=== PATIENT | male | born 1980 | race Caucasian/White ===

== ENCOUNTER 2017-04-11 08:11 | Emergency (ER) | payer OTHER ==
--- NOTE | 2017-04-11 08:38 | EDM.PDOC ---
ED HPI GENERAL MEDICAL PROBLEM - General Chief Complaint: General Stated Complaint: HEAT EXHAUSTION Time Seen by Provider: 04/11/17 08:21 - History of Present Illness INITIAL COMMENTS - FREE TEXT/NARRATIVE: HISTORY AND PHYSICAL: History of present illness: [The patient is a 37-year-old male with a history long-standing of seasonal allergies and vertigo who presents with complaints of a sore throat and swollen glands for the last 2-3 days and feeling more vertiginous than usual. He also complains of some sinus congestion and minimal drainage but no cough chest pain or shortness of breath and no nausea or vomiting. The patient states he has had episodes of vertigo his whole life and he always has some low-grade vertiginous symptoms which he treats with antihistamines [id number] and Antivert as needed. He has several episodes per year where it flares up and he says this episode that he is experiencing now is not severe. He is concerned also about the fact that he was out doing landscaping 3 days ago and is worried he might be dehydrated. He said he had a subjective fever after doing that but has not had a fever since then. With a sore throat the patient states he is able to talk eat and drink but there is some discomfort with that. Patient is able to sleep and lay down but he prefers to sleep on several pillows as a norm. He has no abdominal complaints no extremity complaints but does feel some generalized weakness since doing the landscaping 3 days ago. Review of systems: As per history of present illness and below otherwise all systems reviewed and negative. Past medical history: As per history of present illness and as reviewed below otherwise noncontributory. Surgical history: As per history of present illness and as reviewed below otherwise noncontributory. Social history: No reported history of drug or alcohol abuse. Family history: As per history of present illness and as reviewed below otherwise noncontributory. Physical exam: Gen.: Well-developed well-nourished man is nontoxic and moves easily in the ED without distress. Vital signs been noted by me. HEENT: Atraumatic, normocephalic, pupils reactive, negative for conjunctival pallor or scleral icterus, mucous membranes moist, throat clear of exudates but there is a steer oropharyngeal erythema and some edema, uvula is midline, there is significant anterior cervical adenopathy without nuchal rigidity and no posterior adenopathy, the anterior adenopathy is tender,, neck supple, nontender , trachea midline. There is no discrete sinus tenderness but the turbinates are boggy bilaterally Lungs: Clear to auscultation, breath sounds equal bilaterally, chest nontender. Heart: S1S2, regular rate and rhythm no overt murmurs Abdomen: Soft, nondistended, nontender. NABSs. Pelvis: Stable nontender. Genitourinary: Deferred. Rectal: Deferred. Extremities: Atraumatic, negative for cords or calf pain. Neurovascular unremarkable. Neuro: Awake, alert, oriented. Cranial nerves II through XII unremarkable. Cerebellum unremarkable. Motor and sensory unremarkable throughout. Exam nonfocal. Diagnostics: Rapid strep UA Therapeutics: After the UA results were discussed with the patient he has chosen to get a liter of IV fluid. The patient expressed concerned about being dehydrated and although he clinically and bilateral signs does not appear to be dehydrated we will go ahead and perform a urine test and act on those results. I will plan on treating his lymphadenopathy as well as his complaints of pharyngitis Impression: Pharyngitis with cervical lymphadenopathy, history of vertigo with mild exacerbation, mild dehydration Definitive disposition and diagnosis as appropriate pending reevaluation and review of above. throat Pain Score (Numeric/FACES): 2 - Related Data Allergies Allergy/AdvReac Type Severity Reaction Status Date / Time gluten Allergy Abdominal Verified 04/11/17 08:24 Pain lactose Allergy Abdominal Verified 04/11/17 08:24 Pain Home Meds: Home Meds . [No Known Home Meds] 02/08/16 [History] Past Medical History HEENT History: Reports: None Cardiovascular History: Reports: None Respiratory History: Reports: None Gastrointestinal History: Reports: None Genitourinary History: Reports: Renal Calculus Musculoskeletal History: Reports: None Neurological History: Reports: Other (See Below) Other Neuro History: brain tumor, shunt. Psychiatric History: Reports: None Endocrine/Metabolic History: Reports: None Hematologic History: Reports: None Immunologic History: Reports: None Oncologic (Cancer) History: Reports: None Dermatologic History: Reports: None - Infectious Disease History Infectious Disease History: Reports: None - Past Surgical History Head Surgeries/Procedures: Reports: None HEENT Surgical History: Reports: None Cardiovascular Surgical History: Reports: None Respiratory Surgical History: Reports: None GI Surgical History: Reports: None Neurological Surgical History: Reports: Other (See Below) Dermatological Surgical History: Reports: None Social & Family History - Family History Family Medical History: Noncontributory - Tobacco Use Smoking Status *Q: Never Smoker Second Hand Smoke Exposure: No - Recreational Drug Use Recreational Drug Use: No ED ROS GENERAL - Review of Systems Review Of Systems: ROS reveals no pertinent complaints other than HPI. ED EXAM, GENERAL - Physical Exam Exam: See Below (See dictation) Course - Vital Signs Last Recorded V/S: Last Vital Signs Temp 37.1 C 04/11/17 08:21 Pulse 99 04/11/17 08:21 Resp 18 04/11/17 08:21 BP 126/81 04/11/17 08:21 Pulse Ox 98 04/11/17 08:21 - Orders/Labs/Meds Orders: Active Orders 24 hr Category Date Time Status CULTURE STREP A CONFIRMATION [RM] Stat Lab 04/11/17 08:36 Results STREP SCRN A RAPID W CULT CONF [RM] Stat Lab 04/11/17 08:36 Results Sodium Chloride 0.9% [Normal Saline] 1,000 ml Med 04/11/17 09:25 Ordered IV STAT Sodium Chloride 0.9% [Saline Flush] Med 04/11/17 09:25 Ordered 10 ml FLUSH ASDIRECTED PRN Sodium Chloride 0.9% [Saline Flush] Med 04/11/17 09:25 Ordered 2.5 ml FLUSH ASDIRECTED PRN Saline Lock Insert [OM.PC] Stat Oth 04/11/17 09:25 Ordered Medication Orders Sodium Chloride (Normal Saline) 1,000 mls @ 999 mls/hr IV STAT ONE Stop: 04/11/17 10:25 Sodium Chloride (Saline Flush) 10 ml FLUSH ASDIRECTED PRN PRN Reason: Keep Vein Open Sodium Chloride (Saline Flush) 2.5 ml FLUSH ASDIRECTED PRN PRN Reason: Keep Vein Open Labs: Laboratory Tests 04/11/17 Range/Units 08:36 Urine Color YELLOW Urine Appearance HAZY Urine pH 6.0 (5.0-8.0) Ur Specific [place] >= 1.030 (1.001-1.035) Urine Protein TRACE (NEGATIVE) mg/dL Urine Glucose (UA) NEGATIVE (NEGATIVE) mg/dL Urine Ketones NEGATIVE (NEGATIVE) mg/dL Urine Occult Blood SMALL H (NEGATIVE) Urine Nitrite NEGATIVE (NEGATIVE) Urine Bilirubin SMALL H (NEGATIVE) Urine Ictotest NEGATIVE Urine Urobilinogen 0.2 (<2.0) EU/dL Ur Leukocyte Esterase NEGATIVE (NEGATIVE) Urine RBC 1-3 (0-2/HPF) Urine WBC 0-2 (0-5/HPF) Ur Epithelial Cells RARE (NONE-FEW) Urine Bacteria FEW (NEGATIVE) Urine Mucus MODERATE (NONE-MOD) Meds: Medications Generic Name Dose Route Start Last Admin Trade Name Freq PRN Reason Stop Dose Admin Sodium Chloride 1,000 mls @ 999 mls/hr 04/11/17 09:25 Normal Saline IV 04/11/17 10:25 STAT ONE Sodium Chloride 10 ml 04/11/17 09:25 Saline Flush FLUSH ASDIRECTED PRN Keep Vein Open Sodium Chloride 2.5 ml 04/11/17 09:25 Saline Flush FLUSH ASDIRECTED PRN Keep Vein Open Departure - Departure Time of Disposition: 09:45 Disposition: Home, Self-Care 01 Condition: Good Clinical Impression: Cervical lymphadenopathy Pharyngitis Qualifiers: Pharyngitis/tonsillitis etiology: unspecified etiology Qualified Code(s): J02.9 - Acute pharyngitis, unspecified - Discharge Information Forms: ED Department Discharge Additional Instructions: The following information is given to patients seen in the emergency department who are being discharged to home. This information is to outline your options for follow-up care. We provide all patients seen in our emergency department with a follow-up referral. The need for follow-up, as well as the timing and circumstances, are variable depending upon the specifics of your emergency department visit. If you don't have a primary care physician on staff, we will provide you with a referral. We always advise you to contact your personal physician following an emergency department visit to inform them of the circumstance of the visit and for follow-up with them and/or the need for any referrals to a consulting specialist. The emergency department will also refer you to a specialist when appropriate. This referral assures that you have the opportunity for followup care with a specialist. All of these measure are taken in an effort to provide you with optimal care, which includes your followup. Under all circumstances we always encourage you to contact your private physician who remains a resource for coordinating your care. When calling for followup care, please make the office aware that this follow-up is from your recent emergency room visit. If for any reason you are refused follow-up, please contact the [facility] emergency department at and ask to speak to the emergency department charge nurse. [facility] Primary care- Internal Medicine and Family [address] [address] Try to push more hydration rest taken Biaxin as directed until they are finished. Please continue with the medications you have for your vertigo as needed and return to ER as needed as discussed. Please call and follow-up provider or one of our clinic physicians in the next few days for further care and reevaluation - My Orders Last 24 Hours: My Active Orders 04/11/17 08:36 CULTURE STREP A CONFIRMATION [RM] Stat STREP SCRN A RAPID W CULT CONF [RM] Stat 04/11/17 09:25 Sodium Chloride 0.9% [Normal Saline] 1,000 ml IV STAT Sodium Chloride 0.9% [Saline Flush] 10 ml FLUSH ASDIRECTED PRN Sodium Chloride 0.9% [Saline Flush] 2.5 ml FLUSH ASDIRECTED PRN Saline Lock Insert [OM.PC] Stat - Assessment/Plan Last 24 Hours: My Active Orders 04/11/17 08:36 CULTURE STREP A CONFIRMATION [RM] Stat STREP SCRN A RAPID W CULT CONF [RM] Stat 04/11/17 09:25 Sodium Chloride 0.9% [Normal Saline] 1,000 ml IV STAT Sodium Chloride 0.9% [Saline Flush] 10 ml FLUSH ASDIRECTED PRN Sodium Chloride 0.9% [Saline Flush] 2.5 ml FLUSH ASDIRECTED PRN Saline Lock Insert [OM.PC] Stat
[2017-04-11] MEDS ORDERED: Sodium Chloride 0.9% 1,000 ML IV ONE (09:25)
[2017-04-11] MEDS ORDERED: Sodium Chloride 0.9% 2.5 ML Syringe FLUSH PRN (09:25)
[2017-04-11] MEDS ORDERED: Sodium Chloride 0.9% 10 ML Syringe FLUSH PRN (09:25)
[2017-04-11 10:33] VITALS: BP 148/101
== END 2017-04-11 10:38 | disposition home or self-care (01) ==
LOC: MW.ED 08:11
DX: J02.9 Acute pharyngitis, unspecified (principal); R59.0 Localized enlarged lymph nodes; E86.0 Dehydration; R42 Dizziness and giddiness; Z87.442 Personal history of urinary calculi; Z91.018 Allergy to other foods
CPT/HCPCS: 81001; 87081; 87880; 96360; 99283; J7040; 99284

== ENCOUNTER 2019-01-15 15:40 | Emergency (ER) | payer OTHER ==
[2019-01-15] MEDS ORDERED: Sodium Chloride 0.9% 10 ML Syringe FLUSH PRN (16:10)
[2019-01-15] MEDS ORDERED: Sodium Chloride 0.9% 2.5 ML Syringe FLUSH PRN (16:10)
[2019-01-15] MEDS ORDERED: Ketorolac 30 MG/ML SDV IVPUSH ONE (16:10)
--- NOTE | 2019-01-15 16:22 | EDM.PDOC ---
ED HPI GENERAL MEDICAL PROBLEM - General Chief Complaint: Genitourinary Problem Stated Complaint: kidney stone Time Seen by Provider: 01/15/19 16:15 Source of Information: Reports: Patient History Limitations: Reports: No Limitations - History of Present Illness INITIAL COMMENTS - FREE TEXT/NARRATIVE: HISTORY AND PHYSICAL: History of present illness: Patient is a 38-year-old male here with complaint of left back pain. He reports history of kidney stones and has been hospitalized 5 times in the past due to kidney stones. He reports the pain started this morning and is worse with movement. He denies any injury to the back but does a lot of physical labor but does not recall any specific injury. He denies hematuria, dysuria, abdominal pain, fevers, chills. He denies significant past medical history other than the kidney stones. Patient's blood pressure is 200/110 on arrival. He reports headache at this time. He denies history of hypertension. Denies chest pain, SOB, abdominal pain , nausea, vomiting. diaphoresis. Will check EKG, labs and give labetalol. Review of systems: As per history of present illness and below otherwise all systems reviewed and negative. Past medical history: As per history of present illness and as reviewed below otherwise noncontributory. Surgical history: As per history of present illness and as reviewed below otherwise noncontributory. Social history: No reported history of drug or alcohol abuse. Family history: As per history of present illness and as reviewed below otherwise noncontributory. Physical exam: General: Patient sitting comfortably in no acute distress and nontoxic appearing HEENT: Atraumatic, normocephalic, pupils reactive, negative for conjunctival pallor or scleral icterus, mucous membranes moist, throat clear, neck supple, nontender, trachea midline. No meningeal signs. Lungs: Clear to auscultation, breath sounds equal bilaterally, chest nontender. Heart: S1S2, regular, negative for clicks, rubs, or overt murmur. Abdomen: Soft, nondistended, nontender. Negative for masses or hepatosplenomegaly. Negative for costovertebral tenderness. No rigidity, rebound , guarding. Pelvis: Stable nontender. Genitourinary: Deferred. Rectal: Deferred. Spine: No vertebral tenderness or step offs to palpation. Pain to palpation of the left SI joint. Extremities: Atraumatic, negative for cords or calf pain. Neurovascular unremarkable. Neuro: Awake, alert, oriented. Cranial nerves II through XII unremarkable. Cerebellum unremarkable. Motor and sensory unremarkable throughout. Exam nonfocal. Notes: Diagnostics: UA, CBC, CMP, EKG Therapeutics: Labetolol 10mg IV Prescriptions: None Impression: Back pain, hypertension Plan: 1. Heat or ice as instructed and alternate Tylenol and Motrin as needed. 2. Follow-up with primary care provider 3. Return to ED as needed as discussed Definitive disposition and diagnosis as appropriate pending reevaluation and review of above. Left Flank Pain Score (Numeric/FACES): 6 - Related Data Allergies Allergy/AdvReac Type Severity Reaction Status Date / Time gluten Allergy Abdominal Verified 01/15/19 16:01 Pain lactose Allergy Abdominal Verified 01/15/19 16:01 Pain Home Meds: Home Meds . [No Known Home Meds] 02/08/16 [History] Past Medical History HEENT History: Reports: None Cardiovascular History: Reports: None Respiratory History: Reports: None Gastrointestinal History: Reports: None Genitourinary History: Reports: Renal Calculus Musculoskeletal History: Reports: None Neurological History: Reports: Other (See Below) Other Neuro History: brain tumor, shunt. Psychiatric History: Reports: None Endocrine/Metabolic History: Reports: None Hematologic History: Reports: None Immunologic History: Reports: None Oncologic (Cancer) History: Reports: None Dermatologic History: Reports: None - Infectious Disease History Infectious Disease History: Reports: Chicken Pox - Past Surgical History Head Surgeries/Procedures: Reports: None HEENT Surgical History: Reports: None Cardiovascular Surgical History: Reports: None Respiratory Surgical History: Reports: None GI Surgical History: Reports: None Neurological Surgical History: Reports: Other (See Below) Dermatological Surgical History: Reports: None Social & Family History - Family History Family Medical History: Noncontributory - Tobacco Use Smoking Status *Q: Never Smoker Second Hand Smoke Exposure: No - Caffeine Use Caffeine Use: Reports: Coffee - Recreational Drug Use Recreational Drug Use: No ED ROS GENERAL - Review of Systems Review Of Systems: ROS reveals no pertinent complaints other than HPI. ED EXAM, RENAL/ - Physical Exam Exam: See Below (see dictation) Course - Vital Signs Last Recorded V/S: Last Vital Signs Temp 98.2 F 01/15/19 18:16 Pulse 82 01/15/19 18:16 Resp 16 01/15/19 18:16 BP 165/111 H 01/15/19 18:16 Pulse Ox 96 01/15/19 18:16 - Orders/Labs/Meds Orders: Active Orders 24 hr Category Date Time Status EKG Documentation Completion [RC] STAT Care 01/15/19 16:57 Active Sodium Chloride 0.9% [Saline Flush] Med 01/15/19 16:10 Active 10 ml FLUSH ASDIRECTED PRN Sodium Chloride 0.9% [Saline Flush] Med 01/15/19 16:10 Active 2.5 ml FLUSH ASDIRECTED PRN Saline Lock Insert [OM.PC] Stat Oth 01/15/19 16:10 Ordered Medication Orders Sodium Chloride (Saline Flush) 10 ml FLUSH ASDIRECTED PRN PRN Reason: Keep Vein Open Sodium Chloride (Saline Flush) 2.5 ml FLUSH ASDIRECTED PRN PRN Reason: Keep Vein Open Labs: Laboratory Tests 01/15/19 01/15/19 01/15/19 Range/Units 16:00 16:50 16:50 WBC 11.02 H (4.0-11.0) K/uL RBC 5.94 H (4.50-5.90) M/uL Hgb 16.1 (13.0-17.0) g/dL Hct 45.9 (38.0-50.0) % MCV 77.3 L (80.0-98.0) fL MCH 27.1 (27.0-32.0) pg MCHC 35.1 (31.0-37.0) g/dL RDW Std Deviation 36.9 (28.0-62.0) fl RDW Coeff of Shannan 13 (11.0-15.0) % Plt Count 210 (150-400) K/uL MPV 10.90 (7.40-12.00) fL Neut % (Auto) 61.8 (48.0-80.0) % Lymph % (Auto) 31.0 (16.0-40.0) % [place] % (Auto) 5.7 (0.0-15.0) % Eos % (Auto) 1.1 (0.0-7.0) % Baso % (Auto) 0.4 (0.0-1.5) % Neut # (Auto) 6.8 H (1.4-5.7) K/uL Lymph # (Auto) 3.4 H (0.6-2.4) K/uL [place] # (Auto) 0.6 (0.0-0.8) K/uL Eos # (Auto) 0.1 (0.0-0.7) K/uL Baso # (Auto) 0.0 (0.0-0.1) K/uL Nucleated RBC % 0.0 /100WBC Nucleated RBCs # 0 K/uL Sodium 142 (136-148) mmol/L Potassium 3.3 L (3.5-5.1) mmol/L Chloride 106 (98-107) mmol/L Carbon Dioxide 24.9 (21.0-32.0) mmol/L BUN 10 (7.0-18.0) mg/dL Creatinine 0.8 (0.8-1.3) mg/dL Est Cr Clr Drug Dosing 111.04 mL/min Estimated GFR (MDRD) > 60.0 ml/min Glucose 91 (74-106) mg/dL Calcium 8.8 (8.5-10.1) mg/dL Total Bilirubin 0.4 (0.2-1.0) mg/dL AST 28 (15-37) IU/L ALT 59 (14-63) IU/L Alkaline Phosphatase 57 (46-116) U/L Troponin I (0.000-0.056) ng/mL Total Protein 8.0 (6.4-8.2) g/dL Albumin 4.3 (3.4-5.0) g/dL Globulin 3.7 (2.6-4.0) g/dL Albumin/Globulin Ratio 1.2 (0.9-1.6) Urine Color YELLOW Urine Appearance CLEAR Urine pH 6.0 (5.0-8.0) Ur Specific [place] 1.015 (1.001-1.035) Urine Protein NEGATIVE (NEGATIVE) mg/dL Urine Glucose (UA) NEGATIVE (NEGATIVE) mg/dL Urine Ketones NEGATIVE (NEGATIVE) mg/dL Urine Occult Blood TRACE-INTACT H (NEGATIVE) Urine Nitrite NEGATIVE (NEGATIVE) Urine Bilirubin NEGATIVE (NEGATIVE) Urine Urobilinogen 0.2 (<2.0) EU/dL Ur Leukocyte Esterase NEGATIVE (NEGATIVE) Urine RBC 0-2 (0-2/HPF) Urine WBC 0-1 (0-5/HPF) Ur Epithelial Cells RARE (NONE-FEW) Amorphous Sediment NOT SEEN (NEGATIVE) Urine Bacteria NOT SEEN (NEGATIVE) Urine Mucus NOT SEEN (NONE-MOD) 01/15/19 Range/Units 16:50 WBC (4.0-11.0) K/uL RBC (4.50-5.90) M/uL Hgb (13.0-17.0) g/dL Hct (38.0-50.0) % MCV (80.0-98.0) fL MCH (27.0-32.0) pg MCHC (31.0-37.0) g/dL RDW Std Deviation (28.0-62.0) fl RDW Coeff of Shannan (11.0-15.0) % Plt Count (150-400) K/uL MPV (7.40-12.00) fL Neut % (Auto) (48.0-80.0) % Lymph % (Auto) (16.0-40.0) % [place] % (Auto) (0.0-15.0) % Eos % (Auto) (0.0-7.0) % Baso % (Auto) (0.0-1.5) % Neut # (Auto) (1.4-5.7) K/uL Lymph # (Auto) (0.6-2.4) K/uL [place] # (Auto) (0.0-0.8) K/uL Eos # (Auto) (0.0-0.7) K/uL Baso # (Auto) (0.0-0.1) K/uL Nucleated RBC % /100WBC Nucleated RBCs # K/uL Sodium (136-148) mmol/L Potassium (3.5-5.1) mmol/L Chloride (98-107) mmol/L Carbon Dioxide (21.0-32.0) mmol/L BUN (7.0-18.0) mg/dL Creatinine (0.8-1.3) mg/dL Est Cr Clr Drug Dosing mL/min Estimated GFR (MDRD) ml/min Glucose (74-106) mg/dL Calcium (8.5-10.1) mg/dL Total Bilirubin (0.2-1.0) mg/dL AST (15-37) IU/L ALT (14-63) IU/L Alkaline Phosphatase (46-116) U/L Troponin I < 0.050 (0.000-0.056) ng/mL Total Protein (6.4-8.2) g/dL Albumin (3.4-5.0) g/dL Globulin (2.6-4.0) g/dL Albumin/Globulin Ratio (0.9-1.6) Urine Color Urine Appearance Urine pH (5.0-8.0) Ur Specific [place] (1.001-1.035) Urine Protein (NEGATIVE) mg/dL Urine Glucose (UA) (NEGATIVE) mg/dL Urine Ketones (NEGATIVE) mg/dL Urine Occult Blood (NEGATIVE) Urine Nitrite (NEGATIVE) Urine Bilirubin (NEGATIVE) Urine Urobilinogen (<2.0) EU/dL Ur Leukocyte Esterase (NEGATIVE) Urine RBC (0-2/HPF) Urine WBC (0-5/HPF) Ur Epithelial Cells (NONE-FEW) Amorphous Sediment (NEGATIVE) Urine Bacteria (NEGATIVE) Urine Mucus (NONE-MOD) Meds: Medications Generic Name Dose Route Start Last Admin Trade Name Freq PRN Reason Stop Dose Admin Sodium Chloride 10 ml 01/15/19 16:10 Saline Flush FLUSH ASDIRECTED PRN Keep Vein Open Sodium Chloride 2.5 ml 01/15/19 16:10 Saline Flush FLUSH ASDIRECTED PRN Keep Vein Open Discontinued Medications Generic Name Dose Route Start Last Admin Trade Name Freq PRN Reason Stop Dose Admin Ketorolac Tromethamine 30 mg 01/15/19 16:10 01/15/19 16:52 Toradol IVPUSH 01/15/19 16:11 Not Given ONETIME ONE Labetalol HCl 20 mg 01/15/19 16:57 01/15/19 17:10 Normodyne IVPUSH 01/15/19 16:58 10 mg NOW ONE Administration Protocol Departure - Departure Time of Disposition: 19:09 Disposition: Home, Self-Care 01 Condition: Good Clinical Impression: Back pain, Hypertension - Discharge Information Referrals: PCP,Unknown [Primary Care Provider] - Forms: ED Department Discharge Additional Instructions: The following information is given to patients seen in the emergency department who are being discharged to home. This information is to outline your options for follow-up care. We provide all patients seen in our emergency department with a follow-up referral. The need for follow-up, as well as the timing and circumstances, are variable depending upon the specifics of your emergency department visit. If you don't have a primary care physician on staff, we will provide you with a referral. We always advise you to contact your personal physician following an emergency department visit to inform them of the circumstance of the visit and for follow-up with them and/or the need for any referrals to a consulting specialist. The emergency department will also refer you to a specialist when appropriate. This referral assures that you have the opportunity for follow-up care with a specialist. All of these measure are taken in an effort to provide you with optimal care, which includes your follow-up. Under all circumstances we always encourage you to contact your private physician who remains a resource for coordinating your care. When calling for follow-up care, please make the office aware that this follow-up is from your recent emergency room visit. If for any reason you are refused follow-up, please contact the [facility] Emergency Department at and asked to speak to the emergency department charge nurse. [facility] Primary Care [address] [place] [address] [place] [address] 1. Heat or ice as instructed and alternate Tylenol and Motrin as needed. 2. Follow-up with primary care provider 3. Return to ED as needed as discussed - My Orders Last 24 Hours: My Active Orders 01/15/19 16:10 Sodium Chloride 0.9% [Saline Flush] 10 ml FLUSH ASDIRECTED PRN Sodium Chloride 0.9% [Saline Flush] 2.5 ml FLUSH ASDIRECTED PRN Saline Lock Insert [OM.PC] Stat 01/15/19 16:57 EKG Documentation Completion [RC] STAT - Assessment/Plan Last 24 Hours: My Active Orders 01/15/19 16:10 Sodium Chloride 0.9% [Saline Flush] 10 ml FLUSH ASDIRECTED PRN Sodium Chloride 0.9% [Saline Flush] 2.5 ml FLUSH ASDIRECTED PRN Saline Lock Insert [OM.PC] Stat 01/15/19 16:57 EKG Documentation Completion [RC] STAT
[2019-01-15] MEDS ORDERED: Labetalol 20 MG/4 ML Syringe IVPUSH ONE (16:57)
[2019-01-15 17:28] LABS: CHLORIDE,CL 106 mmol/L (98-107); SODIUM,NA 142 mmol/L (136-148)
--- NOTE | 2019-01-15 19:07 | CR ---
INDICATION: Left flank pain. History of kidney stones. TECHNIQUE: Supine view of the abdomen. COMPARISON: Prior CT scan of the abdomen and pelvis dated 02/08/2016. FINDINGS: There is a shunt or catheter in the right upper quadrant unchanged. There is retained stool in the right colon. No bowel obstruction. Small renal calculi seen on the prior CT are not seen with certainty on the plain film. Probable bone island left acetabulum. Dictated by Anibal Randle MD @ Jan 15 2019 7:00PM Signed by Dr. Anibal Randle @ Jan 15 2019 7:05PM
[2019-01-15 19:31] VITALS: BP 157/98
== END 2019-01-15 19:30 | disposition home or self-care (01) ==
LOC: MW.ED 15:40
DX: M54.9 Dorsalgia, unspecified (principal); I10 Essential (primary) hypertension; Z91.018 Allergy to other foods; Z91.011 Allergy to milk products
CPT/HCPCS: 36415; 74018; 80053; 81001; 84484; 85025; 93005; 96374; 99284; J3490

== ENCOUNTER 2020-08-01 09:00 | Emergency (ER) | payer OTHER ==
--- NOTE | 2020-08-01 09:24 | EDM.PDOC ---
ED HPI GENERAL MEDICAL PROBLEM - General Chief Complaint: General Stated Complaint: UPPER JAW PAIN Time Seen by Provider: 08/01/20 09:03 Source of Information: Reports: Patient, Old Records History Limitations: Reports: No Limitations - History of Present Illness INITIAL COMMENTS - FREE TEXT/NARRATIVE: 40-year-old male with a past medical history of hypertension and astrocytoma in remission presenting with facial dental pain. Patient reports a 3-day history of pain to several teeth on the left upper side of the mouth. Denies any facial swelling, intraoral swelling, difficulty speaking or swallowing, neck stiffness, fever, shortness of breath. Has not seen a dentist in at least 5 years. Intermittently taking naproxen with partial relief. No other complaints. Past medical history: Reviewed, no additional pertinent history. Surgical history: Reviewed in system, no additional pertinent history. Social history: Reviewed in system, no additional pertinent history. Family history: Reviewed in system, no additional pertinent history. PHYSICAL EXAM Vital signs reviewed. Nursing notes reviewed. Constitutional: Awake, alert, non-distressed. Head: Normocephalic, atraumatic. Neck: Supple, full range of motion Eyes: EOMI, conjunctiva normal, no discharge, no scleral icterus. Ears, Nose, Throat: External ears and nose normal, moist oral mucosa. Left upper teeth appear normal, no evidence of severe caries or fractured teeth. No evidence of associated swelling to suggest an abscess. Midline uvula. Mild tenderness over the left maxillary sinus. Cardiovascular: 2+ radial pulse, capillary refill less than 2 seconds. Pulmonary: normal work of breathing, no accessory muscle use. Breathing comfortably on room air, speaking in full sentences, handling secretions easily. Abdomen/GI: Soft, nontender, nondistended, no guarding or rigidity, no masses. Musculoskeletal: No deformities. Integumentary: Appropriate color for ethnicity, warm, dry, no pallor or jaundice, no rash. Neurologic: Alert, answering questions appropriately, normal speech, no facial droop, moving all extremities well. Psychiatric: Appropriate mood and affect, normal thought process. left upper jaw, dental Pain Score (Numeric/FACES): 3 - Related Data Allergies Allergy/AdvReac Type Severity Reaction Status Date / Time gluten Allergy Abdominal Verified 08/01/20 09:08 Pain lactose Allergy Abdominal Verified 08/01/20 09:08 Pain Home Meds: Home Meds RX: Losartan [Cozaar] 100 mg PO DAILY 08/01/20 [History] hydroCHLOROthiazide [Hydrochlorothiazide] 12.5 mg PO DAILY 08/01/20 [History] Past Medical History HEENT History: Reports: None Cardiovascular History: Reports: Hypertension Respiratory History: Reports: Sleep Apnea Gastrointestinal History: Reports: None Genitourinary History: Reports: Renal Calculus Musculoskeletal History: Reports: None Neurological History: Reports: Other (See Below) Other Neuro History: brain tumor, shunt. 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, vertigo Psychiatric History: Reports: None Endocrine/Metabolic History: Reports: None Hematologic History: Reports: None Immunologic History: Reports: None Oncologic (Cancer) History: Reports: None Dermatologic History: Reports: None - Infectious Disease History Infectious Disease History: Reports: Chicken Pox - Past Surgical History Head Surgeries/Procedures: Reports: None HEENT Surgical History: Reports: Oral Surgery Cardiovascular Surgical History: Reports: None Respiratory Surgical History: Reports: None GI Surgical History: Reports: None Neurological Surgical History: Reports: Other (See Below) Dermatological Surgical History: Reports: None Social & Family History - Family History Family Medical History: Noncontributory - Tobacco Use Smoking Status *Q: Never Smoker - Caffeine Use Caffeine Use: Reports: Coffee - Recreational Drug Use Recreational Drug Use: No ED ROS ENT - Review of Systems Review Of Systems: See Below ED EXAM, ENT - Physical Exam Exam: See Below Course - Vital Signs Text/Narrative:: Patient hemodynamically stable, afebrile, well-appearing, looks nontoxic. Differential diagnosis includes but is not limited to: Acute sinusitis (bacterial versus viral), dental caries, dental fracture, acute pulpitis, periapical abscess, less likely deep space neck infection, etc. Teeth appear to be in good condition. No evidence of fractured tooth, no evide nce of intraoral dental infection. No evidence of respiratory compromise. Low suspicion for deep space neck infection given that neck is supple and there is no facial or neck swelling. There is mild tenderness to palpation over the maxillary sinus on the left side, so I believe the patient has acute maxillary sinusitis and this appears to be quite mild. He does not meet criteria for initiating antibiotics at this point given short duration of symptoms and mild pain. There is no evidence of any purulent nasal discharge or facial swelling. He is not immunocompromised. Plan to discharge home with instructions for zhtp-[id number] acetaminophen and naproxen, nasal saline spray, and a trial of nasal corticosteroids along with primary care follow-up. We did discuss ED return precautions including fever, facial swelling, difficulty breathing or swallowing, neck pain or stiffness, or any other new or concerning symptoms and the patient voiced understanding. Plan: Patient is stable to discharge home with outpatient primary care clinic follow-up. Strict emergency department return precautions were provided, patient indicated understanding. All questions were answered prior to depa rture. Discharged in good condition. Last Recorded V/S: Last Vital Signs Temp 36.2 C 08/01/20 09:06 Pulse 77 08/01/20 09:06 Resp 14 08/01/20 09:06 BP 150/94 H 08/01/20 09:06 Pulse Ox 97 08/01/20 09:06 Departure - Departure Time of Disposition: 09:39 Disposition: Home, Self-Care 01 Condition: Good Clinical Impression: Acute maxillary sinusitis Qualifiers: Recurrence: non-recurrent Qualified Code(s): J01.00 - Acute maxillary sinusitis, unspecified - Discharge Information *PRESCRIPTION DRUG MONITORING PROGRAM REVIEWED*: Not Applicable *COPY OF PRESCRIPTION DRUG MONITORING REPORT IN PATIENT PARTH: Not Applicable Instructions: Sinusitis, Adult, [id number], How to Perform a Sinus Rinse, [id number] Referrals: Kayode Winchester MD [Primary Care Provider] - 1 Week (Follow-up if symptoms have not resolved.) Forms: ED Department Discharge Additional Instructions: You were seen in the emergency department for facial and dental pain. Examination of your teeth and mouth are normal. I believe that you have acute maxillary sinusitis. This is not typically treated with antibiotics or steroids unless you develop a fever or your pain significantly worsens, or if symptoms last for greater than 10 days. Treatment is symptomatic, including [id number]-[id number] acetaminophen and either ibuprofen or naproxen. You can also use nasal saline spray and bzan-qsp-xyxiwro decongestant medications although these may raise your blood pressure. You can try an qeit-oom-[id number] nasal allergy spray such as Flonase, this can be helpful for some people. I would like for you to follow-up with your family doctor in the next few days for reevaluation. Warning signs to come back to the ER include fever of 100.4 higher, worsening pain, facial swelling, difficulty speaking or swallowing or breathing, neck stiffness, or any other new or concerning symptoms. Please return the emergency department immediately if your symptoms worsen or if you feel worse. Thank you for choosing the [facility] emergency department in [place] for your medical needs today. It was a pleasure caring for you. The following information is given to patients seen in the emergency department who are being discharged. This information is to outline your options for follow-up care. We provide all patients seen in our emergency department with a follow-up referral. The need for follow-up, as well as the timing and circumstances, are variable depending upon the specifics of your emergency department visit. If you don't have a primary care physician on staff, we will provide you with a referral. We always advise you to contact your personal physician following an emergency department visit to inform them of the circumstance of the visit and for follow-up with them and/or the need for any referrals to a consulting specialist. The emergency department will also refer you to a specialist when appropriate. This referral assures that you have the opportunity for follow-up care with a specialist. All of these measure are taken in an effort to provide you with optimal care, which includes your follow-up. Under all circumstances we always encourage you to contact your private physician who remains a resource for coordinating your care. When calling for follow-up care, please make the office aware that this follow-up is from your recent emergency room visit. If for any reason you are refused follow-up, please contact the [facility] Emergency Department at and asked to speak to the emergency department charge nurse. If you do not have a primary care physician that is caring for you, you can contact these clinics below to set up an appointment to establish care: Yuniel Corrales [facility] - Primary Care [address] [place] [address] [facility] [address] [place] [id number] Sepsis Event Note (ED) - Evaluation Sepsis Screening Result: No Definite Risk - Focused Exam Vital Signs: Vital Signs Temp Pulse Resp BP Pulse Ox 08/01/20 09:06 36.2 C 77 14 150/94 H 97
[2020-08-01 09:49] VITALS: BP 138/88; PULSE 74
== END 2020-08-01 09:45 | disposition home or self-care (01) ==
LOC: MW.ED 09:00
DX: J01.00 Acute maxillary sinusitis, unspecified (principal); I10 Essential (primary) hypertension; Z91.048 Other nonmedicinal substance allergy status; Z79.899 Other long term (current) drug therapy
CPT/HCPCS: 99282; 99283